=== PATIENT | female | born 1950 | race Caucasian/White ===

== ENCOUNTER 2020-12-25 14:11 | Outpatient (CLI) | payer MEDICARE, SELFPAY ==
--- NOTE | ~2020-12-25 | DEXA_ITS ---
Bone Density Report Name: Louise Casanova Age: 70 Sex: Female Ethnicity: White Date of : 1950 Indication: postmenopausal; height loss; prior fracture; Referring Provider: Elder Barclay Study: Bone densitometry was performed. Exam Date: December 25, 2020 Accession number: [id number] Bone Density: Region BMD T-score Z-score Classification Femoral Neck (Left) 0.818 -0.3 1.6 Normal Total Hip (Left) 0.988 0.4 2.0 Normal Total Hip Bilateral Avg 0.981 0.4 1.9 Normal Femoral Neck (Right) 0.827 -0.2 1.7 Normal Total Hip (Right) 0.973 0.3 1.8 Normal World Health Organization criteria for BMD impression classify patients as: Normal (T-score at or above -1.0), Osteopenia (T-score between -1.0 and -2.5), or Osteoporosis (T-score at or below -2.5). 10-year Fracture Risk: FRAX not reported because: All T-scores for Spine Total, Hip Total, Femoral Neck at or above -1.0 Prior hip or vertebral fracture Clinical Information Provided by Patient: Have had a previous hip or vertebral fracture Has had a low trauma fracture Has used the following medications: Calcium Patient maximum height was 65 Menopause Age: 49 Does not regularly consume dairy products Onset of menses at age 12 Number of children 3 Impression: The patient has normal bone mass. The patient has risk factors, including: previous fracture. Discussion: INCREASED RISK OF FRACTURE DUE TO HISTORY OF FRACTURE. The patient's previous fracture puts the patient at high risk of a future fracture. In untreated patients, the risk of osteoporotic fracture increases approximately two-fold for each 1.0 SD decrease in T-score. Low bone density is not the only risk factor for fracture; also consider factors such as patient's age, frailty or poor health, risk of falling, risk of injury, previous osteoporotic fracture, family history of osteoporosis, cigarette smoking, low body weight, etc. Not everyone with a low trauma fracture has osteoporosis; osteomalacia and other metabolic bone disorders should also be considered. Patients who have osteoporosis should be evaluated for specific diseases and conditions (secondary causes) that may cause or contribute to bone loss and fracture risk. National Osteoporosis Foundation (NOF) recommends pharmacologic intervention for patients with a prior hip or vertebral fracture regardless of BMD T-score. The patient should follow a healthful lifestyle (good nutrition with adequate calcium and vitamin D, and appropriate weight-bearing exercise). Follow-Up: Consider a repeat BMD and Vertebral Fracture Assessment (VFA) exam in 2 years or sooner if medically necessary, to reassess this patient's status. Reported by: DO on 12/25/2020 2:58:00 PM. Reviewed, dictated and finalized at location [facility]
== END 2020-12-25 14:12 | disposition home or self-care (01) ==
DX: Z12.31 Encounter for screening mammogram for malignant neoplasm of breast (principal); Z78.0 Asymptomatic menopausal state
CPT/HCPCS: 77080

== ENCOUNTER 2021-03-06 14:50 | Outpatient (CLI) | payer MEDICARE, SELFPAY ==
--- NOTE | ~2021-03-06 | MM_ITS ---
EXAMINATION: MM screening roberto BI w nabeel HISTORY: Screening TECHNIQUE: Craniocaudal and mediolateral oblique 3-D tomosynthesis images were obtained and synthetic 2-D images were generated. CAD analysis was submitted and interpreted. COMPARISON: No prior mammogram is available for comparison at this institution. BREAST PARENCHYMAL COMPOSITION: The breasts are almost entirely fatty. FINDINGS: There is no evidence of suspicious mass, calcification, or architectural distortion to sugg est malignancy in either breast. There has been no suspicious interval change. IMPRESSION: 1. No mammographic evidence of malignancy. 2. Recommend routine screening mammography in one year. BI-RADS Category 1: Negative Reviewed, dictated and finalized at location A.
== END 2021-03-06 14:51 | disposition home or self-care (01) ==
DX: Z12.31 Encounter for screening mammogram for malignant neoplasm of breast (principal)
CPT/HCPCS: 77063; 77067

== ENCOUNTER 2022-07-23 21:11 | Emergency (ER) | payer MEDICARE, SELFPAY ==
--- NOTE | ~2022-07-23 | XR_ITS ---
EXAMINATION: XR chest 1V portable INDICATION: Cough TECHNIQUE: Portable AP chest at 0050 hours COMPARISON: None available FINDINGS: There are patchy opacities of the mid and lower lung zones. No pleural effusion or pneumoth orax. The cardiomediastinal silhouette is normal. There is partially imaged thoracolumbar fusion hard gaviria. IMPRESSION: 1. Patchy opacities of the mid and lower lung zones, consistent with atelectasis versus pneumonia. Reviewed, dictated and finalized at location A. MIXER IMPRESSION: 1. Patchy opacities of the mid and lower lung zones, consistent with atelectasi s versus pneumonia.
--- NOTE | ~2022-07-23 | CT_ITS ---
EXAMINATION: CT diagnostic chest wo con DATE: 07/24/2022 01:39 INDICATION: Bilateral infiltrates. TECHNIQUE: Computed tomography (CT) of the chest was performed without intravenous contrast. The dose -length product was 278.08 mGy-cm. Automated exposure control and iterative reconstruction technique were employed. COMPARISON: No prior studies for comparison. FINDINGS: Heart size is normal. There is mediastinal lymphadenopathy. No significant pleural or peric ardial effusion. There is nonobstructing left nephrolithiasis. There are surgical changes of the lumb ar spine. There is focal consolidation of the right upper lobe and right lower lobe as well as the le ft upper lobe, consistent with multifocal pneumonia. There is apical pleural thickening/scarring. No pneumothorax. No endobronchial lesions. There is a 3 mm right upper lobe nodule. There is a 3 mm nodu le in the right upper lobe, image 52. There is right upper lobe parenchymal scarring extending to the hilum. IMPRESSION: 1. Multifocal airspace disease, consistent with pneumonia. Consolidation most confluent in the right lower lobe. 2: Mediastinal lymphadenopathy, most likely reactive. 3: Small right upper lobe pulmonary nodules measuring 3 mm or less. Recommend follow-up low dose CT chest in 12 months. Reviewed, dictated and finalized at location A. IMMUNOLOGY IMPRESSION: 1. Multifocal airspace disease, consistent with pneumonia. Consolidation most c onfluent in the right lower lobe. 2: Mediastinal lymphadenopathy, most likely reactive. 3: Small right upper lobe pulmonary nodules measuring 3 mm or less. Recommend follow-up low dose CT chest in 12 months.
[2022-07-23 23:30] VITALS: BP 124/63; PULSE 91; RESP 20; TEMP 36.8; O2SAT 92
[2022-07-24] VITALS: O2SAT 93
--- NOTE | 2022-07-24 | PC.NURSE ---
Caere resumed, pt. ill looking on assessment, daughter and pt. states sick c flu sxs for 2 weeks and unable to get rest or relief from coughing. Feeling fatigued, weak and tired. ERP assessed and orders received.
[2022-07-24 00:02] LABS: Strep Group A RT-PCR NOT DETECTED (Negative)
[2022-07-24 00:13] LABS: Influenza A QL RT-PCR Positive (Negative); Influenza B QL RT-PCR Negative (Negative); SARS-CoV-2 RNA PCR Negative (Negative)
[2022-07-24 00:16] LABS: RSV RNA, RT-PCR Negative (Negative)
[2022-07-24] MEDS: SODIUM CHLORIDE 0.9% IV 1,000 ML 999 ML IV CONT (00:30)
--- NOTE | 2022-07-24 00:30 | PC.NURSE ---
Pt up and ambulated c SBA to BR to obtain Urine for UA. IVF infusing as per order, pt. assisted back to bed, call mcconnell in reach.
[2022-07-24 00:31] VITALS: BP 112/59; PULSE 98; RESP 20; TEMP 37.2; O2SAT 93
[2022-07-24 00:56] LABS: Basophils Absolute Auto 0.01 K/mm3 (0.00-0.10); Basophils Percent Auto 0.2 % (0.0-1.0); Eosinophils Absolute Auto 0.03 K/mm3 (0.02-0.50); Eosinophils Percent Auto 0.6 % (1.0-6.0); Hematocrit 33.4 % (35.0-42.0); Hemoglobin 10.8 g/dL (11.7-13.8); Immature Granulocyte Absolute 0.02 K/mm3 (0.00-0.00); Immature Granulocyte Percent A 0.4 % (0.0-0.0); Lymphocytes Absolute Auto 1.36 K/mm3 (1.10-4.50); Mean Corpuscular HGB Conc 32.3 g/dL (32.0-36.0); Mean Corpuscular Hemoglobin 27.7 pg (27.0-31.0); Mean Corpuscular Volume 85.6 fL (78.0-102.0); Mean Platelet Volume 9.3 fl (9.2-11.8); Monocytes Absolute Auto 0.67 K/mm3 (0.10-0.90); Monocytes Percent Auto 12.3 % (2.0-11.0); Neutrophils Absolute Auto 3.4 K/mm3 (1.7-7.2); Neutrophils Percent Auto 61.5 % (50.0-70.0); Platelet Count Result 138 K/mm3 (150-420); Red Cell Distribution Width 14.4 % (11.6-14.4); White Blood Count 5.4 K/mm3 (4.8-10.8)
[2022-07-24 01:06] LABS: Add Urine Microscopic? YES; Appearance Urine Clear (Clear); Bilirubin Urine Negative (Negative); Blood Urine Negative (Negative); Color Urine Yellow (Yellow); Glucose Urine UA 3+ (Negative); Ketones Urine Trace (Negative); Leukocyte Esterase Ur Negative (Negative); Nitrate Urine Negative (Negative); Protein Urine Negative (Negative); Urobilinogen Urine 0.2 mg/dL (0.2-1.0)
[2022-07-24 01:08] LABS: Lactic Acid Reflex 1.2 mmol/L (0.4-2.0)
[2022-07-24 01:11] LABS: Bacteria Urine Trace /hpf; RBC Urine 0-2 /hpf (0-2); Squamous Epithelial Cell Urine Few /hpf (Few); WBC Urine 0-3 /hpf (0-3)
[2022-07-24 01:20] LABS: Alanine Aminotransferase 97 U/L (14-59); Albumin Level 2.5 g/dL (3.4-5.0); Alkaline Phosphatase 256 U/L (46-116); Anion Gap 9 mmol/L (8-16); Aspartate Amino Transferase 119 U/L (15-37); Bilirubin,Total 0.7 mg/dL (0.00-1.00); Blood Urea Nitrogen 15 mg/dL (7-18); Calcium 8.6 mg/dL (8.5-10.1); Carbon Dioxide 27 mmol/L (21-32); Chloride 104 mmol/L (98-108); Estimated CRCL calculation 57 ml/min; Estimated Glomerular Filt Rate > 60; Glucose 140 mg/dL (70-99); Osmolality Calculated 292 mOsm/kg (285-295); Potassium 3.6 mmol/L (3.5-5.1); Sodium 140 mmol/L (136-145); Total Protein 7.2 g/dL (6.4-8.2)
[2022-07-24] MEDS: AZITHROMYCIN 250 MG TABLET 500 MG PO (01:30)
[2022-07-24 01:48] LABS: Glucose Point of Care 151 mg/dl (65-105)
--- NOTE | 2022-07-24 01:50 | PC.NURSE ---
Pt resting in bed, cough consistent and intermittent, pt c/o chest soreness from coughing, ERP informed of discomfort, order obtained for Mucinex, awaiting CT chest results.
[2022-07-24] MEDS: IBUPROFEN 400 MG TABLET 800 MG PO (02:03)
[2022-07-24] MEDS: guaiFENesin 12 HR 600 MG TABCR PO (02:03)
[2022-07-24 02:17] VITALS: BP 119/57; PULSE 85; RESP 20; TEMP 37.3; O2SAT 95
--- NOTE | 2022-07-24 02:59 | PC.NURSE ---
Pt resting, Dr Cassidy in to speak c pt and pts. daughter about CT chest results, POC to admit for obs. or home care. Pt states she is feeling some better, cough still harsh and present c dim. b.s. noted bilaterally. Pt sipping water and ice chips. VSS. D-I-L discussed options c pts. son, pt. wants to go home and do txs and care at home. ERP Dr Cassidy to send meds to pharmacy for pt in AM.
[2022-07-24 03:11] VITALS: TEMP 37.1
[2022-07-24 03:19] VITALS: BP 113/57; PULSE 79; RESP 20; TEMP 37.1; O2SAT 91
--- NOTE | 2022-07-24 03:25 | ED.URI ---
HPI - URI/Sore Throat General Chief Complaint: Upper Respiratory Infection Stated Complaint: dehydrated, sugars elevated, fever, weak Time Seen by Provider: 07/23/22 21:15 Source: patient, family and RN notes reviewed Mode of arrival: ambulatory Limitations: no limitations History of Present Illness MD elicited complaint: fever, cough and other (mild SOB) Onset (ago): week(s) (2) Consistency: progressively worsening Severity: moderate Pain scale (0-10): 3 Able to tolerate fluids by mouth: Yes Exacerbating factors: nothing Relieving factors: NSAID, OTC cold medicine and cough suppressant Associated symptoms: fever, chills, nasal congestion, sore throat, cough and shortness of breath Treatments prior to arrival: acetaminophen, ibuprofen and cold medicine Related Data Home Medications Medication Instructions Recorded Confirmed escitalopram oxalate 20 mg tablet 20 mg PO DAILY 07/23/22 07/23/22 glipizide 5 mg tablet, extended 5 mg PO DAILY 07/23/22 07/23/22 release 24 hr irbesartan 150 mg tablet 150 mg PO DAILY 07/23/22 07/23/22 pravastatin 40 mg tablet 40 mg PO DAILY 07/23/22 07/23/22 sitagliptin phosphate 50 1 tablet PO BID 07/23/22 07/23/22 mg-metformin 1,000 mg tablet (Janumet) Allergies Allergy/AdvReac Type Severity Reaction Status Date / Time No Known Allergies Allergy Verified 07/23/22 23:28 Review of Systems Review of Systems: All systems reviewed & are unremarkable except as noted in HPI and below Constitutional: Constitutional: Reports no additional constitutional complaints Eyes: Eyes: Reports no additional eye complaints ENT: Reports system reviewed and no additional complaints, except as documented Cardiovascular: Cardiovascular: Reports no additional cardiovascular complaints Respiratory: Respiratory: Reports no additional respiratory complaints, Reports chest congestion, Reports cough and Reports dyspnea Gastrointestinal: Gastrointestinal: Reports no additional gastrointestinal complaints Genitourinary: Genitourinary: Reports no additional female genitourinary complaints Musculoskeletal: Musculoskeletal: Reports no additional musculoskeletal complaints and Reports myalgias Integumentary/Breasts: Skin/Breast: Reports system reviewed and no additional complaints, except as docu Neurologic: Reports system reviewed and no additional complaints, except as documented Psychiatric: Psychiatric: Reports no additional psychiatric complaints Endocrine: Endocrine: Reports no additional endocrine complaints Hematologic/Lymphatic: Hematologic/Lymphatic: Reports no additional hematologic/lymphatic complaints Allergic/Immunologic: Allergic/Immunologic: Reports no additional allergic/immunologic complaints PMFSH Past Medical History Medical History Influenza Pneumonia Exam Const: General: healthy appearing, no acute distress and well nourished Nutritional Appearance: well nourished Orientation/consciousness: patient oriented x3 Limitations: no limitations HENMT: Head: normal to inspection Ears: external ears normal, TM's normal bilaterally and EAC's normal Face/Nose/Sinus: Normal external nose present, Normal nares present, normal facial exam and sinuses nontender Face and sinus: normal facial exam and sinuses nontender Mouth: Yes Normal oral and palatal mucosa present and Yes moist mucous membranes Teeth and gingiva: dentition normal Other: hyperemic pharynx Eyes: Conjunctivae: conjunctivae normal Pupils: Equal, round and reactive pupils present EOM: EOMs intact bilaterally Neck: Neck: normal visual inspection, no lymphadenopathy and no meningeal signs Chest: Chest palpation & inspection: normal inspection of the chest Resp: Auscultation: crackles and rhonchi Cardio: Rate: regular rate Rhythm: regular rhythm GI: GI Palp: Yes Soft to palpation and No Tenderness to palpation present (GI) Auscultation: normal bowel soun
== END 2022-07-24 03:41 | disposition home or self-care (01) ==
PROVIDERS: Emergency Provider Emergency Medicine
DX: J11.1 Influenza due to unidentified influenza virus with other respiratory manifestations (principal); J18.9 Pneumonia, unspecified organism; Z20.822 Contact with and (suspected) exposure to COVID-19
CPT/HCPCS: 36415; 71045; 71250; 80053; 81001; 82948; 83605; 85025; 87637; 87651; 96365; 99284; A9270; J0696; J7030

== ENCOUNTER 2023-11-17 17:38 | Emergency (ER) | payer MEDICARE, SELFPAY ==
[2023-11-17] VITALS (18 sets, daily range): BP systolic 91–144; BP diastolic 54–68; PULSE 7–83; RESP 18–120; TEMP 36.6; O2SAT 90–99
--- NOTE | ~2023-11-17 | XR_ITS ---
EXAMINATION: XR chest 1V portable Exam Date/Time: 11/17/2023 18:30 CDT HISTORY: COUGH, DYSPENA Comparison: CT chest 07/24/2022, report only. RESULT: Lines, tubes, and devices: None. Lungs and pleura: Mild diffuse reticular opacities. Streaky and subsegmental opacities in the left l daniela base. Cardiomediastinal silhouette: Stable. Other: No acute osseous or upper abdominal finding. IMPRESSION: Subsegmental left basilar atelectasis/consolidation. Mild interstitial edema. Reviewed, dictated and finalized at location K.
--- NOTE | 2023-11-17 17:48 | ECG_ITS ---
Measurements Intervals [place] Rate: 73 P: 66 MN: 151 QRS: 78 QRSD: 97 T: 48 QT: 393 QTc: 435 Interpretive Statements SINUS RHYTHM WITHIN NORMAL LIMITS NO PREVIOUS ECG AVAILABLE FOR COMPARISON Electronically Signed On 11-18-2023 7:17:14 CDT by Luis Soto M.D.
--- NOTE | 2023-11-17 17:56 | ED.GENADULT ---
HPI - General Adult General Chief complaint: Shortness of Breath/Dyspnea Stated complaint: sob Time Seen by Provider: 11/17/23 17:47 History of Present Illness HPI narrative: Louise is a 73F with a PMH of DMII, HTN, HLD and a mood disorder that presented to the ED not feeling well. She has felt poor all of the last month. However, in the last few days she has had increased cough, wheezing, dyspnea, fatigue, watery diarrhea and soem lower extremity edema. No chest pain, lightheadedness, or vomiting. She smoked for about 10 years but quit 40 years ago. Related Data Home Medications Medication Instructions Recorded Confirmed escitalopram oxalate 20 mg tablet 20 mg PO DAILY 07/23/22 11/17/23 irbesartan 150 mg tablet 150 mg PO DAILY 07/23/22 11/17/23 pravastatin 40 mg tablet 40 mg PO DAILY 07/23/22 11/17/23 aspirin 81 mg tablet 81 mg PO DAILY 11/17/23 11/17/23 cetirizine 10 mg tablet 10 mg PO DAILY 11/17/23 11/17/23 empagliflozin 25 mg tablet 25 mg PO DAILY 11/17/23 11/17/23 (Jardiance) melatonin 10 mg tablet 20 mg PO HS PRN Insomnia 11/17/23 11/17/23 meloxicam 7.5 mg tablet 7.5 mg PO DAILY 11/17/23 11/17/23 metformin 500 mg tablet,extended 500 mg PO BID 11/17/23 11/17/23 release 24 hr omeprazole 40 mg capsule,delayed 40 mg PO DAILY 11/17/23 11/17/23 release sitagliptin phosphate 100 mg 100 mg PO DAILY 11/17/23 11/17/23 tablet (Januvia) tizanidine 4 mg tablet 4 mg PO TID PRN Pain 11/17/23 11/17/23 Allergies Allergy/AdvReac Type Severity Reaction Status Date / Time No Known Allergies Allergy Verified 11/17/23 17:48 Review of Systems Review of Systems: All systems reviewed & are unremarkable except as noted in HPI and below PMFSH Past Medical History Medical History Influenza Pneumonia Exam Const: General: cooperative, healthy appearing, comfortable, no acute distress, well developed, alert, awake and Physically active Orientation/consciousness: oriented to person, oriented to place and oriented to time HENMT: Head: normal to inspection, normocephalic and atraumatic Ears: hearing grossly normal bilaterally and external ears normal Face/Nose/Sinus: Normal external nose present Eyes: General: appearance normal, both eyes and all related structures Periorbital: periorbital findings normal Sclera: sclerae normal Pupils: Equal, round and reactive pupils present Neck: Neck: normal visual inspection Chest: Chest palpation & inspection: normal inspection of the chest Resp: Effort & Inspection: normal respiratory effort, able to speak in complete sentences and no respiratory distress Auscultation: crackles on the right and wheezes expiratory wheezes Other: cough present on exam Cardio: Jugular venous distension: no JVD Rate: regular rate Rhythm: regular rhythm GI: Inspection: normal to inspection GI Palp: Yes Soft to palpation Auscultation: normal bowel sounds Skin: General skin exam: normal color and no rashes or lesions noted Neuro: General: oriented to person, oriented to place and oriented to time Cranial nerves: Yes Equal, round and reactive pupils present Extrem: General: normal to inspection Other: 2+ pitting edema just above the ankles bilaterally Course Course Emergency Course: Ordered EKG, duoneb, CXR, and labs as well as viral swabs. EKG showoed NSR with a rate of 73, NSR, No ST elevation and no ectopy. EXAMINATION:? XR chest 1V portable Exam Date/Time:? 11/17/2023 18:30 CDT HISTORY: COUGH, DYSPENA ? Comparison:? CT chest 07/24/2022, report only. RESULT: Lines, tubes, and devices:? None. Lungs and pleura:? Mild diffuse reticular opacities. Streaky and subsegmental opacities in the left lung base. Cardiomediastinal silhouette:? Stable. Other:? No acute osseous or upper abdominal finding. IMPRESSION: Subsegmental left basilar atelectasis/consolidation. Mild interstitial edema. Labs showed a low magnesium, elev
[2023-11-17] MEDS: IPRATROPIUM 0.5 MG/ALBUTEROL SULFATE 2.5 MG AMPUL.NEB 3 ML INHALATION (18:13)
[2023-11-17 18:26] LABS: Basophils Absolute Auto 0.02 K/mm3 (0.00-0.10); Basophils Percent Auto 0.4 % (0.0-1.0); Eosinophils Absolute Auto 0.14 K/mm3 (0.02-0.50); Eosinophils Percent Auto 2.7 % (1.0-6.0); Hematocrit 33.2 % (35.0-42.0); Hemoglobin 10.4 g/dL (11.7-13.8); Immature Granulocyte Absolute 0.02 K/mm3 (0.00-0.00); Immature Granulocyte Percent A 0.4 % (0.0-0.0); Lymphocytes Absolute Auto 1.57 K/mm3 (1.10-4.50); Lymphocytes Percent Auto 30.6 % (18.0-42.0); Mean Corpuscular HGB Conc 31.3 g/dL (32-36); Mean Corpuscular Hemoglobin 26.5 pg (27.0-31.0); Mean Corpuscular Volume 84.7 fL (78.0-102.0); Mean Platelet Volume 9.1 fl (9.2-11.8); Monocytes Absolute Auto 0.41 K/mm3 (0.10-0.90); Neutrophils Absolute Auto 2.97 K/mm3 (1.70-7.20); Neutrophils Percent Auto 57.9 % (50.0-70.0); Platelet Count Result 115 K/mm3 (150-420); Red Blood Count 3.92 M/mm3 (4.20-5.40); Red Cell Distribution Width 14.8 % (11.6-14.4); White Blood Count 5.1 K/mm3 (4.8-10.8)
[2023-11-17 18:52] LABS: Alanine Aminotransferase 29 U/L (14-59); Albumin Level 3.1 g/dL (3.4-5.0); Alkaline Phosphatase 179 U/L (46-116); Anion Gap 10 mmol/L (4-12); Aspartate Amino Transferase 20 U/L (15-37); Bilirubin,Total 0.9 mg/dL (0.00-1.00); Blood Urea Nitrogen 15 mg/dL (7-18); Calcium 8.6 mg/dL (8.5-10.1); Carbon Dioxide 28 mmol/L (21-32); Chloride 105 mmol/L (98-108); Estimated Glomerular Filt Rate > 60; Glucose 213 mg/dL (70-99); Magnesium 1.2 mg/dL (1.8-2.4); NT Pro B Type Natriuretic Pept 197 pg/mL (0-125); Osmolality Calculated 302 mOsm/kg (285-295); Potassium 3.6 mmol/L (3.5-5.1); Sodium 143 mmol/L (136-145); Total Protein 7.1 g/dL (6.4-8.2); Troponin I 5.3 ng/L (0.00-60.4)
[2023-11-17 19:07] LABS: SARS-CoV-2 RNA PCR Negative (Negative)
[2023-11-17 19:08] LABS: Influenza A QL RT-PCR Negative (Negative); Influenza B QL RT-PCR Negative (Negative); RSV RNA, RT-PCR Negative (Negative)
[2023-11-17] MEDS: MAGNESIUM SULF 2 GM/WATER 50ML 2 GM/50 ML BAG IVPB (19:34)
[2023-11-17] MEDS: FUROSEMIDE INJ 40 MG/4 ML VIAL IV PUSH (20:23)
--- NOTE | 2023-11-17 20:59 | PC.NURSE ---
patient awake and alert, ambulatory to bathroom at this time, refusing wheelchair.
== END 2023-11-17 21:18 | disposition home or self-care (01) ==
PROVIDERS: Emergency Provider Family Medicine
DX: I50.9 Heart failure, unspecified (principal); E11.9 Type 2 diabetes mellitus without complications; I10 Essential (primary) hypertension; E78.5 Hyperlipidemia, unspecified; Z20.822 Contact with and (suspected) exposure to COVID-19
CPT/HCPCS: 36415; 71045; 80053; 83735; 83880; 84484; 85025; 87637; 93005; 96365; 96374; 99284; J1940; J3475